=== PATIENT | female | born 1980 | race American Indian/Alaskan Native ===

== ENCOUNTER 2016-08-31 09:41 | Outpatient (CLI) | payer MEDICARE ==
[2016-08-31] MEDS ORDERED: XYLOCAINE TOPICAL 4% TP ONE (10:36)
[2016-09-01] MEDS ORDERED: XYLOCAINE TOPICAL 4% TP ONE (08:16)
== END 2016-08-31 09:42 | disposition home or self-care (01) ==
LOC: WOUND 09:41
PROVIDERS: ATTEND Internal Medicine
DX: T81.89XA Other complications of procedures, not elsewhere classified, initial encounter (principal); S41.101A Unspecified open wound of right upper arm, initial encounter; I10 Essential (primary) hypertension; L03.111 Cellulitis of right axilla; E65 Localized adiposity; L73.2 Hidradenitis suppurativa; Y83.8 Other surgical procedures as the cause of abnormal reaction of the patient, or of later complication, without mention of misadventure at the time of the procedure

== ENCOUNTER 2016-09-08 08:57 | Outpatient (CLI) | payer MEDICARE ==
[2016-09-08] MEDS ORDERED: XYLOCAINE TOPICAL 2% ONE (09:18)
[2016-09-08] MEDS ORDERED: XYLOCAINE TOPICAL 2% TP ONE (09:48)
== END 2016-09-08 08:58 | disposition home or self-care (01) ==
LOC: WOUND 08:57
PROVIDERS: ATTEND Podiatrist
DX: T81.89XD Other complications of procedures, not elsewhere classified, subsequent encounter (principal); L73.2 Hidradenitis suppurativa; I10 Essential (primary) hypertension; Y83.8 Other surgical procedures as the cause of abnormal reaction of the patient, or of later complication, without mention of misadventure at the time of the procedure

== ENCOUNTER 2016-09-15 09:21 | Outpatient (CLI) | payer MEDICARE ==
[2016-09-15] MEDS ORDERED: XYLOCAINE TOPICAL 2% ONE (09:26)
[2016-09-15] MEDS ORDERED: XYLOCAINE TOPICAL 2% TP ONE (13:21)
--- NOTE | 2016-09-16 00:21 | Physician Progress Note ---
DIAGNOSIS: Wound in the right axilla, measurements 1.0 x 9.7 x 0.2, an area of 9.5 sq cm covered with sloughs. TREATMENT: Under 4% lidocaine solution topical analgesia using a sterile curette, excisional debridement at subcutaneous level over an area of 9.5 sq cm was performed. Bleeding controlled with the gauze. Wound dressed with alginate rope. Recommend change of dressings 3 times a week. Return in 1 week for followup. JOB# [id number] NICK/RASHAUN
== END 2016-09-15 09:22 | disposition home or self-care (01) ==
LOC: WOUND 09:21
PROVIDERS: ATTEND Orthopaedic Surgery
DX: T81.89XD Other complications of procedures, not elsewhere classified, subsequent encounter (principal); E66.01 Morbid (severe) obesity due to excess calories; I10 Essential (primary) hypertension; E65 Localized adiposity; L73.2 Hidradenitis suppurativa; Y83.9 Surgical procedure, unspecified as the cause of abnormal reaction of the patient, or of later complication, without mention of misadventure at the time of the procedure

== ENCOUNTER 2016-09-22 13:17 | Outpatient (CLI) | payer MEDICARE ==
[~2016-09-22 13:17] MED LIST: XYLOCAINE TOPICAL 2% ONE
[2016-09-22] MEDS ORDERED: XYLOCAINE TOPICAL 2% TP ONE (15:01)
== END 2016-09-22 13:18 | disposition home or self-care (01) ==
LOC: WOUND 13:17
PROVIDERS: ATTEND Internal Medicine
DX: T81.89XD Other complications of procedures, not elsewhere classified, subsequent encounter (principal); L03.111 Cellulitis of right axilla; L73.2 Hidradenitis suppurativa; E65 Localized adiposity; I10 Essential (primary) hypertension; E66.01 Morbid (severe) obesity due to excess calories; Y83.8 Other surgical procedures as the cause of abnormal reaction of the patient, or of later complication, without mention of misadventure at the time of the procedure
CPT/HCPCS: 97602

== ENCOUNTER 2016-09-29 09:26 | Outpatient (CLI) | payer MEDICARE ==
[2016-09-29] MEDS ORDERED: XYLOCAINE TOPICAL 2% ONE (09:33)
[2016-09-29] MEDS ORDERED: XYLOCAINE TOPICAL 2% TP ONE (10:01)
== END 2016-09-29 09:27 | disposition home or self-care (01) ==
LOC: WOUND 09:26
PROVIDERS: ATTEND Internal Medicine
DX: T81.89XD Other complications of procedures, not elsewhere classified, subsequent encounter (principal); S41.101D Unspecified open wound of right upper arm, subsequent encounter; I10 Essential (primary) hypertension; L03.111 Cellulitis of right axilla; E65 Localized adiposity; L73.2 Hidradenitis suppurativa; E66.01 Morbid (severe) obesity due to excess calories

== ENCOUNTER 2016-10-06 09:28 | Outpatient (CLI) | payer MEDICARE ==
[2016-10-06] MEDS ORDERED: XYLOCAINE TOPICAL 2% ONE (09:36)
[2016-10-06] MEDS ORDERED: SILVER NITRATE TP ONE (10:02)
[2016-10-06] MEDS ORDERED: XYLOCAINE TOPICAL 2% TP ONE (12:47)
== END 2016-10-06 09:29 | disposition home or self-care (01) ==
LOC: WOUND 09:28
PROVIDERS: ATTEND Internal Medicine
DX: T81.89XD Other complications of procedures, not elsewhere classified, subsequent encounter (principal); I10 Essential (primary) hypertension; L73.2 Hidradenitis suppurativa; E65 Localized adiposity; E66.01 Morbid (severe) obesity due to excess calories; Y83.8 Other surgical procedures as the cause of abnormal reaction of the patient, or of later complication, without mention of misadventure at the time of the procedure

== ENCOUNTER 2016-10-13 09:17 | Outpatient (CLI) | payer MEDICARE ==
[2016-10-13] MEDS ORDERED: XYLOCAINE TOPICAL 4% TP ONE ×2 (09:22→10:01)
== END 2016-10-13 09:18 | disposition home or self-care (01) ==
LOC: WOUND 09:17
PROVIDERS: ATTEND Internal Medicine
DX: T81.89XD Other complications of procedures, not elsewhere classified, subsequent encounter (principal); S41.101D Unspecified open wound of right upper arm, subsequent encounter; L73.2 Hidradenitis suppurativa; I10 Essential (primary) hypertension; E65 Localized adiposity; L03.111 Cellulitis of right axilla; E66.01 Morbid (severe) obesity due to excess calories; Y83.8 Other surgical procedures as the cause of abnormal reaction of the patient, or of later complication, without mention of misadventure at the time of the procedure

== ENCOUNTER 2016-10-20 09:16 | Outpatient (CLI) | payer MEDICARE ==
[2016-10-20] MEDS ORDERED: XYLOCAINE TOPICAL 4% TP ONE ×2 (09:21→09:42)
== END 2016-10-20 09:17 | disposition home or self-care (01) ==
LOC: WOUND 09:16
PROVIDERS: ATTEND Internal Medicine
DX: T81.89XD Other complications of procedures, not elsewhere classified, subsequent encounter (principal); L73.2 Hidradenitis suppurativa; I10 Essential (primary) hypertension; E66.01 Morbid (severe) obesity due to excess calories; Y83.8 Other surgical procedures as the cause of abnormal reaction of the patient, or of later complication, without mention of misadventure at the time of the procedure

== ENCOUNTER 2016-11-03 09:31 | Outpatient (CLI) | payer MEDICARE ==
[2016-11-03] MEDS ORDERED: XYLOCAINE TOPICAL 2% ONE (09:40)
[2016-11-03] MEDS ORDERED: XYLOCAINE TOPICAL 2% TP ONE (09:50)
== END 2016-11-03 09:32 | disposition home or self-care (01) ==
LOC: WOUND 09:31
PROVIDERS: ATTEND Internal Medicine
DX: T81.89XD Other complications of procedures, not elsewhere classified, subsequent encounter (principal); L73.2 Hidradenitis suppurativa; I10 Essential (primary) hypertension; E66.01 Morbid (severe) obesity due to excess calories; Y83.8 Other surgical procedures as the cause of abnormal reaction of the patient, or of later complication, without mention of misadventure at the time of the procedure

== ENCOUNTER 2016-11-10 09:06 | Outpatient (CLI) | payer MEDICARE | END 2016-11-10 09:07 | disposition home or self-care (01) | LOC: WOUND 09:06 | PROVIDERS: ATTEND Internal Medicine | DX: L73.2 Hidradenitis suppurativa (principal); I10 Essential (primary) hypertension; L03.90 Cellulitis, unspecified; E65 Localized adiposity; E66.01 Morbid (severe) obesity due to excess calories | CPT/HCPCS: 99213; G0463 ==